=== PATIENT | male | born 1975 | race Caucasian/White ===

== ENCOUNTER 2020-03-01 19:12 | Emergency (ER) | payer MEDICAID, SELFPAY ==
[2020-03-01 19:25] VITALS: BP 132/84; PULSE 108; RESP 18; TEMP 36.9; O2SAT 97
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
== END 2020-03-01 19:43 | disposition short-term general hospital (02) ==
PROVIDERS: Emergency Provider Nurse Practitioner Family
DX: J44.1 Chronic obstructive pulmonary disease with (acute) exacerbation (principal); M54.5 Low back pain; W10.9XXA Fall (on) (from) unspecified stairs and steps, initial encounter
CPT/HCPCS: 99203; G0463

== ENCOUNTER 2020-03-01 20:06 | Emergency (ER) | payer MEDICAID, SELFPAY ==
--- NOTE | ~2020-03-01 | XR_ITS ---
EXAMINATION: XR lumbar spine 2-3V DATE: 03/01/2020 20:56 INDICATION: Medial low back pain radiating down the right leg post fall 2 days prior. TECHNIQUE: Anteroposterior and lateral views of the lumbar spine, and cone-down lateral view of the l umbosacral junction were obtained. COMPARISON: None. FINDINGS: L4 and L5 laminectomies. L4-S1 posterior spinal fusion with bilateral vertical thania and pedicle screw fixation. No lucency surrounding the screws to suggest loosening. Alignment is normal. Vertebral body heights are normal. Mild to moderate disc height loss at L4-L5 and L5-S1. Visualized portions of the sacrum and bilateral sacral iliac joints are unremarkable. Lung bases are clear. IMPRESSION: 1. Mild to moderate lower lumbar spondylosis with L4 and L5 laminectomies and L4-S1 instrumented post erior spinal fusion. No evident acute osseous abnormality. Reviewed, dictated and finalized at location A. IMPRESSION: 1. Mild to moderate lower lumbar spondylosis with L4 and L5 laminectomies and L 4-S1 instrumented posterior spinal fusion. No evident acute osseous abnormality .
[2020-03-01 20:11] VITALS: BP 125/70; PULSE 108; RESP 19; TEMP 36.9; O2SAT 98
--- NOTE | 2020-03-01 20:34 | ED.BACK ---
HPI - Back Pain/Injury General Chief Complaint: Back Pain/Injury Stated Complaint: back pain Time Seen by Provider: 03/01/20 20:26 Source: patient Mode of arrival: ambulatory Limitations: no limitations History of Present Illness HPI Narrative: Patient is a 44-year-old male who presents with low back pain with history of thoracolumbar fusion patient was carrying a dresser when he fell injuring the low back 2 days ago noting aching pain since. Patient with history of chronic low back pain was on [place] but now is out of his medication. Patient on arrival to emergency department notes only low back pain denies other injuries or complaints presents with normal gait no distress Related Data Home Medications Medication Instructions Recorded Confirmed ProAir HFA 03/01/20 Spiriva with HandiHaler 03/01/20 Allergies Allergy/AdvReac Type Severity Reaction Status Date / Time ketorolac [From Toradol] Allergy Hives Verified 03/01/20 20:22 naproxen Allergy Hives Verified 03/01/20 20:22 Penicillins Allergy Hives Verified 03/01/20 20:22 tramadol Allergy Hives Verified 03/01/20 20:22 Review of Systems Review of Systems: All systems reviewed & are unremarkable except as noted in HPI and below PMFSH Surgical History Surgical History (Updated 03/01/20 @ 20:39 by Scott Beasley PA-C) History of orthopedic surgery Social History Social History (Updated 03/01/20 @ 20:39 by Scott Beasley PA-C) Smoking status: Current every day smoker Gender identity (if verbalized by the patient): Male Exam Narrative: Exam Narrative: GENERAL: Well-appearing, well-nourished, and in no acute distress. HEAD: Normocephalic, atraumatic. EYES: PERRLA and EOMI. ENT: Nares clear, no rhinorrhea or epistaxis. Mucous membranes moist. CHEST: Clear to auscultation. No respiratory distress. No wheezes rales or rhonchi HEART: Regular rate and rhythm. No murmur heard. EXTREMITIES: Normal range of motion. No edema. Midline thoracolumbar tenderness no deformities noted SKIN: Warm, dry, no rash. NEURO: No focal deficits. Alert and oriented x3. Normal speech and gait. Cranial nerves II through XII grossly intact PSYCH: Normal mood and affect. Course Course Emergency Course: Patient in the room in no distress aware of case findings treatment plan diagnosis felt appropriate for discharge home Vital Signs Vital signs: Vital Signs Temperature 98.4 F 03/01/20 20:11 Pulse Rate 108 H 03/01/20 20:11 Respiratory Rate 19 03/01/20 20:11 Blood Pressure 125/70 03/01/20 20:11 Pulse Oximetry 98 03/01/20 20:11 Temperature 98.4 F 03/01/20 20:11 Pulse Rate 108 H 03/01/20 20:11 Respiratory Rate 19 03/01/20 20:11 Blood Pressure 125/70 03/01/20 20:11 Pulse Oximetry 98 03/01/20 20:11 MDM - Back Pain/Injury MDM Narrative Medical decision making narrative: Patients pain is positional in nature and localized to back without signs of cord compression or cauda equina based on neurological exam, skeletal exam and history. No fever or other significant factors to suggest osteomyelitis or spinal epidural abscess. No symptoms or signs to suggest pain is referred from abdominal or / cardiopulmonary sources. No pulsatile masses noted on exam. Patient ambulates with steady gait and is stable for outpatient management given case findings. Discharge Plan Discharge Clinical Impression: Strain of lumbar region Patient Disposition: Home, Self-Care Condition: Stable Instructions: Antibiotic Form, Acute Low Back Pain (ED) Additional Instructions: Medications as needed and prescribed. Limit lifting and bending. You may apply heat or cold to the area as needed. Follow up with your doctor for further care in the next 7 days. Contact your doctor or return to the emergency department if you develop problems with bladder or bowel function, weakness or loss of feeling in one or both of your legs, or any other serious co
[2020-03-01] MEDS: HYDROcodone/acetaminophen (*CRX) 5-325 MG TABLET 1 TAB PO (21:01)
[2020-03-01 21:20] VITALS: PULSE 80; RESP 18; TEMP 36.7; O2SAT 99
== END 2020-03-01 21:21 | disposition home or self-care (01) ==
PROVIDERS: Emergency Provider Emergency Medicine
DX: S39.012A Strain of muscle, fascia and tendon of lower back, initial encounter (principal); Z98.1 Arthrodesis status; F17.200 Nicotine dependence, unspecified, uncomplicated; G89.29 Other chronic pain; M54.5 Low back pain; W10.9XXA Fall (on) (from) unspecified stairs and steps, initial encounter
CPT/HCPCS: 72100; 99283; A9270

== ENCOUNTER 2020-04-17 09:28 | Emergency (ER) | payer MEDICAID, SELFPAY ==
[2020-04-17 09:36] VITALS: BP 130/76; PULSE 112; RESP 16; TEMP 36.7; O2SAT 98
--- NOTE | 2020-04-17 09:50 | ED.DENTAL ---
HPI - Dental/Oral General Chief complaint: Dental/Oral Stated complaint: Tooth Pain Time Seen by Provider: 04/17/20 09:39 Source: patient and RN notes reviewed Mode of arrival: ambulatory Limitations: no limitations History of Present Illness HPI Narrative: Patient presents today with a 4 to 5-day history of right upper dental pain and swelling. States he has a dentist appointment set up in 1 week. States he has 2 or 3 teeth in this area that are painful and needs to get this whole area pulled. He has had the left upper arch all extracted in the past. Denies fever, shortness of breath, difficulty swallowing. He has been taking Tylenol without relief. Currently rates pain 03/12. No recent antibiotic use. History of COPD. MD Complaint: tooth pain Related Data Home Medications Medication Instructions Recorded Confirmed ProAir HFA 03/01/20 Spiriva with HandiHaler 03/01/20 Allergies Allergy/AdvReac Type Severity Reaction Status Date / Time ketorolac [From Toradol] Allergy Hives Verified 04/17/20 09:40 naproxen Allergy Hives Verified 04/17/20 09:40 Penicillins Allergy Hives Verified 04/17/20 09:40 tramadol Allergy Hives Verified 04/17/20 09:40 Review of Systems Review of Systems: Narrative: CONSTITUTIONAL: Denies body aches, fever, chills, or sweats. EYES: Denies visual changes, redness, or discharge. ENT: Denies rhinorrhea, congestion, sore throat, or otalgia.+ Dental pain and right upper facial swelling CARDIOVASCULAR: Denies chest pain, palpitations, or edema. RESPIRATORY: Denies cough or dyspnea. GASTROINTESTINAL: Denies abdominal pain, nausea, vomiting, or diarrhea. GENITOURINARY: Denies dysuria or hematuria. SKIN: Denies rash, itching, or wounds. MUSCULOSKELETAL: Denies back pain, joint pain, or myalgia. NEUROLOGIC: Denies headache, numbness, tingling, or weakness. PSYCH: Denies depression or anxiety. [facility] Past Medical History Medical History (Updated 04/17/20 @ 09:55 by Eleni Moreland, AIX SYSTEM ADMINISTRATOR, BC) COPD (chronic obstructive pulmonary disease) Surgical History Surgical History (Updated 03/01/20 @ 20:39 by Scott Beasley PA-C) History of orthopedic surgery Social History Social History (Updated 03/01/20 @ 20:39 by Scott Beasley PA-C) Smoking status: Current every day smoker Gender identity (if verbalized by the patient): Male Comments At time of signature, I have reviewed and agree with nursing past medical, surgical, social and family history unless otherwise noted. Please see nursing chart for further information. There is no relevant family history pertinent to the presenting complaint Exam Narrative: Exam Narrative: GENERAL: Well-appearing, well-nourished, and in no acute distress. HEAD: Normocephalic, atraumatic. EYES: EOMI. No redness or drainage. Conjunctivae normal. ENT: Mucous membranes pink and moist. Throat normal. Uvula midline. Moderate amount of right upper jaw swelling. Swelling of the right upper gingiva with erythema. No obvious periapical abscess. Teeth in this portion of the arch are black in color with large caries. Few are broken off at the gumline. NECK: Normal AROM. Supple. No lymphadenopathy. CHEST: No respiratory distress. EXTREMITIES: Normal range of motion. No edema. SKIN: Warm, dry, no rash. Capillary refill normal. Normal skin turgor. NEURO: No focal deficits. Alert and oriented x3. Gait steady. PSYCH: Normal affect. No signs of depression or anxiety. Course Vital Signs Vital signs: Vital Signs Temperature 98.0 F 04/17/20 09:36 Pulse Rate 112 H 04/17/20 09:36 Respiratory Rate 16 04/17/20 09:36 Blood Pressure 130/76 04/17/20 09:36 Pulse Oximetry 98 04/17/20 09:36 Temperature 98.0 F 04/17/20 09:36 Pulse Rate 112 H 04/17/20 09:36 Respiratory Rate 16 04/17/20 09:36 Blood Pressure 130/76 04/17/20 09:36 Pulse Oximetry 98 04/17/20 09:36 Reviewed. Pt has been instructed to follow up with his PCP
== END 2020-04-17 09:54 | disposition home or self-care (01) ==
PROVIDERS: Emergency Provider Nurse Practitioner
DX: K04.7 Periapical abscess without sinus (principal); J44.9 Chronic obstructive pulmonary disease, unspecified; F17.200 Nicotine dependence, unspecified, uncomplicated
CPT/HCPCS: 99213; G0463

== ENCOUNTER 2020-04-17 10:13 | Emergency (ER) | payer MEDICAID, SELFPAY ==
[2020-04-17 10:19] VITALS: BP 116/76; PULSE 81; RESP 16; TEMP 36.1; O2SAT 97
--- NOTE | 2020-04-17 11:05 | ED.DENTAL ---
HPI - Dental/Oral General Chief complaint: Dental/Oral Stated complaint: tooth pain/facial swelling Time Seen by Provider: 04/17/20 10:15 Source: patient Mode of arrival: ambulatory Limitations: no limitations History of Present Illness HPI Narrative: Patient is a 44-year-old male who presents with right upper dental abscess for the last several days increasing redness and swelling and tenderness denies fever chills nausea vomiting URI symptoms has not taken anything for his symptoms presents uncomfortable but in no distress does not have a dentist history of gross dental decay Related Data Home Medications Medication Instructions Recorded Confirmed ProAir HFA 03/01/20 Spiriva with HandiHaler 03/01/20 Allergies Allergy/AdvReac Type Severity Reaction Status Date / Time Penicillins Allergy Hives Verified 04/17/20 10:21 Review of Systems Review of Systems: All systems reviewed & are unremarkable except as noted in HPI and below PMFSH Past Medical History Medical History COPD (chronic obstructive pulmonary disease) Surgical History Surgical History History of orthopedic surgery Social History Social History Smoking status: Current every day smoker Gender identity (if verbalized by the patient): Male Exam Narrative: Exam Narrative: GENERAL: Well-appearing, well-nourished, and in no acute distress. HEAD: Normocephalic, atraumatic. Slight swelling of the right upper cheek no erythema EYES: PERRLA and EOMI. ENT: Nares clear, no rhinorrhea or epistaxis. Mucous membranes moist. Oropharynx without tonsillar hypertrophy exudate or other lesions. Right upper dental abscess with swelling along the gumline floor the mouth is soft uvula is midline no trismus or drooling or other abnormalities NECK: Supple. No adenopathy or masses. SKIN: Warm, dry, no rash. NEURO: No focal deficits. Alert and oriented x3. PSYCH: Normal mood and affect. Course Course Emergency Course: Patient in the room in no distress aware of case findings treatment plan diagnosis had I&D of his abscess will be discharged with medications and dental referral and reasons to return Vital Signs Vital signs: Vital Signs Temperature 97 F L 04/17/20 10:19 Pulse Rate 81 04/17/20 10:19 Respiratory Rate 16 04/17/20 10:19 Blood Pressure 116/76 04/17/20 10:19 Pulse Oximetry 97 04/17/20 10:19 Temperature 97 F L 04/17/20 10:19 Pulse Rate 81 04/17/20 10:19 Respiratory Rate 16 04/17/20 10:19 Blood Pressure 116/76 04/17/20 10:19 Pulse Oximetry 97 04/17/20 10:19 Procedures Abscess I/D Oral: Date of Incision: 04/17/20 Time of Incision: 11:07 Side (if applicable): right Sedation/analgesia: none Technique: other (18-gauge needle used to make single straight incision) Irrigation: No I&D Results: Pus and Blood Complications: pain MDM - Dental/Oral MDM Narrative Medical decision making narrative: Paitents pain and complaint coupled with physical findings are consistant with dentalgia. There are no focal signs of space occupying lesions that are compromising to the ariway. The floor of the mouth is soft with no signs of Ludwigs Angina. Patient is without trismus or drooling and able to swallow secreations. Patient is felt appropriate for discharge home with dental follow up. Discharge Plan Discharge Clinical Impression: Dental abscess Patient Disposition: Home, Self-Care Condition: Stable Instructions: Antibiotic Form, Dental Abscess (ED) Additional Instructions: Follow-up with dentistry in the next 7 days. Go to ER for shortness of breath, difficulty breathing, chest pain, fever/chills, weakness, nauseau/vomitting, unable to swallow or open the mouth etc. or any other concerns. Stay we
[2020-04-17] MEDS: ACETAMINOPHEN 500 MG TABLET 1000 MG PO (11:29)
[2020-04-17] MEDS: IBUPROFEN 600 MG TABLET PO (11:29)
--- NOTE | 2020-04-17 11:29 | PC.NURSE ---
patient medicated prior to discharge. 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 alert and oriented.
[2020-04-17 11:30] VITALS: BP 162/82; PULSE 78; TEMP 36.6
== END 2020-04-17 11:32 | disposition home or self-care (01) ==
PROVIDERS: Emergency Provider Emergency Medicine
DX: K04.7 Periapical abscess without sinus (principal); J44.9 Chronic obstructive pulmonary disease, unspecified; F17.200 Nicotine dependence, unspecified, uncomplicated
CPT/HCPCS: 41800; 99283; A9270

== ENCOUNTER 2020-05-28 12:08 | Emergency (ER) | payer OTHER, SELFPAY ==
--- NOTE | ~2020-05-28 | XR_ITS ---
EXAMINATION: XR abdomen/kub 1V EXAM DATE: 05/28/2020 12:47 INDICATION: Groin pain, hematuria. TECHNIQUE: Frontal upright projection of the upper abdomen, frontal projection of the lower abdomen f or interpretation. There is no prior study for comparison. FINDINGS: There are several loops of moderately distended air-filled mid small bowel, could be ileus or less likely obstruction. Moderate amount of colonic stool. L4-S1 posterior fusion and laminectomi es. The spinal cord signal intensity and intrinsic morphology is normal. IMPRESSION: Several moderately distended small bowel loops, probably ileus given no GI symptoms repor teresa in the moderate amount of colonic stool. Clinical correlation. Reviewed, dictated and finalized at location A. [facility] IMPRESSION: Several moderately distended small bowel loops, probably ileus give n no GI symptoms reported in the moderate amount of colonic stool. Clinical cor relation.
[2020-05-28 12:17] VITALS: BP 140/87; PULSE 109; RESP 16; TEMP 36.7; O2SAT 99
[2020-05-28 12:22] VITALS: BP 140/87; PULSE 109; RESP 16; TEMP 36.7; O2SAT 99
--- NOTE | 2020-05-28 12:39 | ED.MALEGU ---
HPI - Male Genitourinary General Chief complaint: Urogenital-Male Stated complaint: groin pain Time Seen by Provider: 05/28/20 12:21 Source: patient and RN notes reviewed Mode of arrival: ambulatory Limitations: no limitations History of Present Illness HPI Narrative: Patient presents today complaint of a 2-day history of left flank pain that now radiates to the left groin, hematuria, dysuria. Currently rates his pain 10/10 and has been taking Tylenol and ibuprofen with little relief. He does have history of kidney stones that he has been able to pass on his own. Denies any current fever, nausea, or vomiting. Last bowel movement was today and was normal. Denies abdominal pain, scrotal pain, testicular pain. Patient is also requesting a refill of his albuterol inhaler. Patient takes [place] 5/325 TID for his chronic low back pain. He has had several back surgeries in the past with hardware placed. MD Complaint: dysuria and other (Flank pain, hematuria) Related Data Home Medications Medication Instructions Recorded Confirmed budesonide-formoterol [Symbicort] 1 inh INHALATION DIRECTED 05/28/20 05/28/20 hydrocodone-acetaminophen 1 tablet PO DIRECTED 05/28/20 05/28/20 tiotropium bromide [Spiriva with 1 cap INHALATION DAILY 05/28/20 05/28/20 HandiHaler] Allergies Allergy/AdvReac Type Severity Reaction Status Date / Time Penicillins Allergy Hives Verified 05/28/20 12:18 Review of Systems Review of Systems: Narrative: CONSTITUTIONAL: Denies body aches, fever, chills, or sweats. EYES: Denies visual changes, redness, or discharge. ENT: Denies rhinorrhea, congestion, sore throat, or otalgia. CARDIOVASCULAR: Denies chest pain, palpitations, or edema. RESPIRATORY: Denies cough or dyspnea. GASTROINTESTINAL: Denies nausea, vomiting, or diarrhea. GENITOURINARY:+ Dysuria, hematuria, left groin pain, left flank pain SKIN: Denies rash, itching, or wounds. MUSCULOSKELETAL: Denies back pain, joint pain, or myalgia. NEUROLOGIC: Denies headache, numbness, tingling, or weakness. PSYCH: Denies depression or anxiety. [facility] Past Medical History Medical History COPD (chronic obstructive pulmonary disease) Surgical History Surgical History History of orthopedic surgery Social History Social History Smoking status: Current every day smoker Gender identity (if verbalized by the patient): Male Comments At time of signature, I have reviewed and agree with nursing past medical, surgical, social and family history unless otherwise noted. Please see nursing chart for further information. There is no relevant family history pertinent to the presenting complaint Exam Narrative: Exam Narrative: GENERAL: Well-appearing, well-nourished, and in moderate pain distress. HEAD: Normocephalic, atraumatic. EYES: EOMI. No redness or drainage. Conjunctivae normal. ENT: Mucous membranes pink and moist. NECK: Normal AROM. Supple. No lymphadenopathy. CHEST: No respiratory distress. Clear to auscultation. HEART: Regular rate and rhythm. No murmur appreciated. Normal peripheral pulses. ABDOMEN: Soft, nondistended, normal active bowel sounds. MUSCULOSKELETAL: No bony tenderness. EXTREMITIES: Normal range of motion. No edema. SKIN: Warm, dry, no rash. Capillary refill normal. Normal skin turgor. NEURO: No focal deficits. Alert and oriented x3. Gait steady. PSYCH: Normal affect. No signs of depression or anxiety. Course Course Emergency Course: Discussed x-ray results with patient. Instructed him to drink plenty of water and take a laxative. Discussed with him that he should only take the amount of pain medication that has been prescribed to him and no more. At this time, I do not feel it indicated to send him to the ER for evaluation. Anticipatory guidance given. A
[2020-05-28] MEDS: KETOROLAC (*BKC) 60 MG/2 ML VIAL IM (12:49)
== END 2020-05-28 13:48 | disposition home or self-care (01) ==
PROVIDERS: Emergency Provider Nurse Practitioner; PCP Family Medicine
DX: N20.0 Calculus of kidney (principal); F17.200 Nicotine dependence, unspecified, uncomplicated; J44.9 Chronic obstructive pulmonary disease, unspecified
CPT/HCPCS: 74018; 81003; 96372; 99213; G0463; J1885

== ENCOUNTER 2020-07-22 13:39 | Emergency (ER) | payer OTHER, SELFPAY ==
--- NOTE | ~2020-07-22 | XR_ITS ---
EXAMINATION: XR chest 2V DATE: 07/22/2020 14:33 INDICATION: Shortness of breath TECHNIQUE: AP and lateral views of the chest are obtained. COMPARISON: None available FINDINGS: Lucencies in the upper lung zones are consistent with emphysema. The lungs are free of acut e opacities. Calcified pulmonary nodules are consistent with old granulomatous disease. There is no p leural effusion or pneumothorax. The cardiomediastinal silhouette is normal. There is moderate thorac ic spondylosis. IMPRESSION: 1. Emphysema without acute cardiopulmonary abnormality. Reviewed, dictated and finalized at location A. [facility] CUTTER
[2020-07-22 13:41] VITALS: BP 121/92; PULSE 101; RESP 18; TEMP 36.8; O2SAT 96
--- NOTE | 2020-07-22 13:45 | ECG_ITS ---
Measurements Intervals [place] Rate: 84 P: 86 KS: 127 QRS: 72 QRSD: 107 T: 79 QT: 339 QTc: 402 Interpretive Statements SINUS RHYTHM WITH MARKED SINUS ARRHYTHMIA INCOMPLETE RIGHT BUNDLE BRANCH BLOCK BASELINE ARTIFACT- V1, V4-V5 BORDERLINE ECG Electronically Signed On 07-22-2020 14:40:34 SR. PAYROLL MANAGER by Tao Diaz D.O.
--- NOTE | 2020-07-22 13:50 | PC.NURSE ---
patient brought back to ED room 14 with c/o increased dyspnea. hx of COPD. wears O2 at home but not helping today. took last nebulizer treatment 1 hour ago without relief. continues to smoke 2PPD per patient and . assessments documented. SL inserted. EKG done. patient on hall monitor. patient and updated with current treatment plan. call light in reach.
--- NOTE | 2020-07-22 14:20 | ED.SOB ---
HPI - SOB/Dyspnea General Chief Complaint: Shortness of Breath/Dyspnea Stated Complaint: hx copd, diff breathing Time Seen by Provider: 07/22/20 14:20 Source: patient and family Mode of arrival: ambulatory Limitations: no limitations History of Present Illness HPI Narrative: Patient is 45 years old white male presents with increase of productive cough of colored sputum and shortness of breath on exertion for the last 2 to 3 weeks. Patient is actively smoker, on 3 L oxygen by nasal cannula at home, came without oxygen. Patient denies any fever, chills, nausea, vomiting, history of COVID-19 infection or exposure to anybody with COVID-19. MD elicited complaint: shortness of breath and cough Related Data Home Medications Medication Instructions Recorded Confirmed budesonide-formoterol [Symbicort] 1 inh INHALATION DIRECTED 05/28/20 05/28/20 hydrocodone-acetaminophen 1 tablet PO DIRECTED 05/28/20 05/28/20 tiotropium bromide [Spiriva with 1 cap INHALATION DAILY 05/28/20 05/28/20 HandiHaler] Allergies Allergy/AdvReac Type Severity Reaction Status Date / Time ketorolac [From Toradol] Allergy Hives Verified 07/22/20 13:45 naproxen Allergy Hives Verified 07/22/20 13:45 Penicillins Allergy Hives Verified 07/22/20 13:44 tramadol Allergy Hives Verified 07/22/20 13:44 Review of Systems Review of Systems: Narrative: CONSTITUTIONAL: Denies fever, chills, or sweats. EYES: Denies visual changes, redness, or discharge. ENT: Denies rhinorrhea, congestion, sore throat, or otalgia. CARDIOVASCULAR: Denies chest pain, palpitations, or edema. RESPIRATORY: Denies cough or dyspnea. GASTROINTESTINAL: Denies abdominal pain, nausea, vomiting, or diarrhea. GENITOURINARY: Denies dysuria or hematuria. SKIN: Denies rash or itching. MUSCULOSKELETAL: Denies back pain, joint pain, or myalgia. NEUROLOGIC: Denies headache, numbness, or weakness. PSYCHIATRIC: Denies anxiety or depression. [facility] Past Medical History Medical History COPD (chronic obstructive pulmonary disease) Surgical History Surgical History History of orthopedic surgery Social History Social History Smoking status: Current every day smoker Gender identity (if verbalized by the patient): Male Exam Narrative: Exam Narrative: General appearance: Well-developed, well-nourished Skin: Normal color Head: Normocephalic, nontraumatic Eyes: Clear conjunctiva ENT: Oropharynx normal, ears normal, nose normal Neck: Supple, nontender Chest and respiratory: Airway patent, no respiratory distress, no accessory muscle use,, diminution of air entry bilaterally Heart: Regular rate/rhythm Abdomen: Soft, nontender, no organomegaly, quiet bowel sounds Vascular: Normal peripheral pulses, normal capillary refill. Musculoskeletal: Normal range of motion, nontender back Neurologic: Alert and oriented ?3, [employer] is normal as tested, no gross motor deficit Course Course Emergency Course: Improving Vital Signs Vital signs: Vital Signs Temperature 36.8 C 07/22/20 13:41 Pulse Rate 101 H 07/22/20 13:41 Respiratory Rate 18 07/22/20 13:41 Blood Pressure 121/92 H 07/22/20 13:41 Pulse Oximetry 96 07/22/20 13:41 Temperature 36.8 C 07/22/20 13:41 Pulse Rate 101 H 07/22/20 13:41 Respiratory Rate 18 07/22/20 13:41 Blood Pressure 121/92 H 07/22/20 13:41 Pulse Oximetry 96 07/22/20 13:41 MDM - SOB/Dyspnea MDM Narrative Medical decision making narrative: COPD exacerbation is my concern. Labs, ABG on room air, chest x-ray, D-dimer o
[2020-07-22 14:29] LABS: Basophils Absolute Auto 0.1 K/mm3 (0.0-0.1); Basophils Percent Auto 0.9 % (0.2-1.2); Eosinophils Absolute Auto 0.2 K/mm3 (0-0.3); Hematocrit 42.7 % (42.0-52.0); Hemoglobin 14.2 g/dL (14.0-18.0); Immature Granulocyte Absolute 0.03 K/mm3 (0.00-0.031); Immature Granulocyte Percent A 0.3 % (0-0.5); Lymphocytes Absolute Auto 2.94 K/mm3 (0.9-3.2); Lymphocytes Percent Auto 25.1 % (18.3-44.2); Mean Corpuscular HGB Conc 33.3 g/dl (32-36); Mean Corpuscular Hemoglobin 31.4 pg (26-34); Mean Corpuscular Volume 94.5 fl (80-100); Mean Platelet Volume 9.7 fl (7.4-10.4); Monocytes Absolute Auto 0.7 K/mm3 (0.1-0.6); Monocytes Percent Auto 6.2 % (2.6-8.5); Neutrophils Absolute Auto 7.7 K/mm3 (1.3-6.7); Neutrophils Percent Auto 65.5 % (45.5-73.1); Platelet Count Result 459 k/mm3 (150-375); Red Blood Count 4.52 M/mm3 (4.6-6.20); White Blood Count 11.7 K/mm3 (4.5-10.0)
--- NOTE | 2020-07-22 14:30 | PC.NURSE ---
respiratory at bedside for neb treatment.
[2020-07-22 14:35] LABS: Anion Gap 8 mmol/L (8-16); Blood Urea Nitrogen 11 mg/dL (9-20); Calcium 9.1 mg/dL (8.4-10.2); Carbon Dioxide 31 mmol/L (22-30); Chloride 102 mmol/L (98-107); Estimated CRCL calculation 96 ml/min; Estimated Glomerular Filt Rate > 60; Glucose 87 mg/dL (75-110); Potassium 4.5 mmol/L (3.4-5.0); Sodium 141 mmol/L (137-145)
[2020-07-22 14:46] LABS: Alveolar/Arterial O2 Gradient 19.4 mmHg; Base Excess ABG -0.8 mEq/l (+/-2.0); Fractional Inspired Oxygen 21 %; Oxygen Content ABG 19.3 %vol (16.0-22.0); Oxyhemoglobin 92.8 % THb (90.0-100.0); PCO2 ABG 40.4 mmHg (35.0-45.0); Total Hemoglobin 14.8 g/dL (12.0-18.0); pH ABG 7.392 (7.350-7.450)
[2020-07-22 14:47] LABS: Device ROOM AIR; Modified Allen's Test Pass; Site Drawn LEFT RADIAL
[2020-07-22 14:53] LABS: D Dimer < 0.22 ug/mL (<0.48)
[2020-07-22 16:37] LABS: Alanine Aminotransferase 21 U/L (4-50); Albumin Level 4.3 g/dL (3.5-5.1); Alkaline Phosphatase 102 U/L (38-126); Aspartate Amino Transferase 30 U/L (17-59); Bilirubin,Total 0.3 mg/dL (0.2-1.3)
--- NOTE | 2020-07-22 16:45 | PC.NURSE ---
provider in room. order for meds now. patient aware. medicated as ordered.
[2020-07-22] MEDS: ONDANSETRON INJ 4 MG/2 ML VIAL IV PUSH (16:50)
[2020-07-22] MEDS: MORPHINE SULFATE (*CRX) 4 MG/ML INJ IV PUSH (16:50)
[2020-07-22 17:04] VITALS: PULSE 95; RESP 20
[2020-07-22] MEDS: IPRATROPIUM BR 0.02% INH SOLN 0.5 MG/2.5 ML VIAL INHALATION (17:04)
[2020-07-22] MEDS: ALBUTEROL SULFATE NEB 2.5 MG/0.5 ML INH 5 MG INHALATION (17:04)
[2020-07-22] MEDS: methylPREDNISolone SOD SUCC 125 MG VIAL IV PUSH (17:15)
--- NOTE | 2020-07-22 17:15 | PC.NURSE ---
feels better after all meds. treatment done. waiting for further orders from provider vs disposition. on engine monitor. denies needs.
[2020-07-22 17:25] VITALS: BP 127/88; PULSE 103; RESP 16; O2SAT 94
== END 2020-07-22 17:25 | disposition home or self-care (01) ==
PROVIDERS: Emergency Provider Emergency Medicine; PCP Family Medicine
DX: J44.1 Chronic obstructive pulmonary disease with (acute) exacerbation (principal); F17.200 Nicotine dependence, unspecified, uncomplicated; Z99.81 Dependence on supplemental oxygen; I45.10 Unspecified right bundle-branch block
CPT/HCPCS: 36415; 36600; 71046; 80048; 80076; 82805; 85025; 85380; 93005; 94640; 96374; 96375; 99284; J2270; J2405; J2930

== ENCOUNTER 2020-10-11 17:07 | Emergency (ER) | payer OTHER, SELFPAY ==
--- NOTE | ~2020-10-11 | CT_ITS ---
EXAMINATION: CT abdomen pelvis wo con EXAM DATE: 10/11/2020 18:07 INDICATION: Right flank pain. TECHNIQUE: Spiral CT of the abdomen and pelvis was performed without contrast. Axial, coronal and sag ittal images were reviewed. The dose-length product (DLP) for this examination was 127.99 mGy-cm. T he exposure was tailored according to patient size (auto mA exposure control), and iterative reconstr uction (ASIR) was used as additional dose reduction technique. There is no prior study for compariso n. FINDINGS: There is no nephrolithiasis or hydronephrosis. The prostate is unremarkable. There is mi ld diffuse bladder wall thickening, could indicate chronic cystitis. Acute cystitis not excludable. The liver, spleen, adrenal glands and pancreas are unremarkable. Gallbladder is unremarkable. No bi liary obstruction. There is no retroperitoneal or pelvic lymphadenopathy. Possible appendectomy. There is mild sigmoid colonic diverticulosis. There is no adjacent inflammato ry change to suggest diverticulitis. The stomach and small bowel are unremarkable. There is expected amount of colonic stool. No free intraperitoneal gas. The heart is normal in size. There are no pericardial or pleural effusions. There is moderate emphysema and hyperinflation. L4 and L5 aguila ctomies, and posterior fusion L4-S1. There are no osteoblastic or osteolytic lesions identified. IMPRESSION: 1. Mild diffuse bladder wall thickening, could indicate acute or chronic cystitis. 2. No nephrolithiasis or hydronephrosis. 3. Mild sigmoid diverticulosis. 4. Emphysema and hyperinflation. Reviewed, dictated and finalized at location A. IMPRESSION: 1. Mild diffuse bladder wall thickening, could indicate acute or chronic cysti tis. 2. No nephrolithiasis or hydronephrosis. 3. Mild sigmoid diverticulosis. 4. Emphysema and hyperinflation.
[2020-10-11 17:08] VITALS: BP 135/90; PULSE 92; RESP 16; TEMP 37; O2SAT 100
[2020-10-11 17:50] LABS: Add Urine Microscopic? YES; Appearance Urine Clear (Clear); Bacteria Urine Trace /hpf; Bilirubin Urine Negative (Negative); Blood Urine 3+ (Negative); Color Urine Yellow (Yellow); Glucose Urine UA Negative (Negative); Ketones Urine Negative (Negative); Leukocyte Esterase Ur Negative LEU/UL (Negative); Nitrate Urine Negative (Negative); Protein Urine Negative (Negative); RBC Urine >75 /hpf (0-2); Specific Grav Ur 1.005 (1.001-1.035); Urobilinogen Urine Negative mg/dL (<2.0)
[2020-10-11] MEDS: SODIUM CHLORIDE 0.9% IV 1,000 ML 999 ML IV CONT (17:50)
[2020-10-11] MEDS: ONDANSETRON INJ 4 MG/2 ML VIAL IV PUSH (17:51)
[2020-10-11 17:52] LABS: Basophils Absolute Auto 0.1 K/mm3 (0.0-0.1); Basophils Percent Auto 0.7 % (0.2-1.2); Eosinophils Absolute Auto 0.4 K/mm3 (0-0.3); Eosinophils Percent Auto 3.7 % (0-4.4); Hematocrit 42.6 % (42.0-52.0); Immature Granulocyte Absolute 0.04 K/mm3 (0.00-0.031); Immature Granulocyte Percent A 0.4 % (0-0.5); Lymphocytes Absolute Auto 4.43 K/mm3 (0.9-3.2); Lymphocytes Percent Auto 45.2 % (18.3-44.2); Mean Corpuscular HGB Conc 32.9 g/dl (32-36); Mean Corpuscular Hemoglobin 31.2 pg (26-34); Mean Corpuscular Volume 94.9 fl (80-100); Mean Platelet Volume 9.1 fl (7.4-10.4); Monocytes Absolute Auto 0.7 K/mm3 (0.1-0.6); Monocytes Percent Auto 6.9 % (2.6-8.5); Neutrophils Absolute Auto 4.2 K/mm3 (1.3-6.7); Neutrophils Percent Auto 43.1 % (45.5-73.1); Platelet Count Result 393 k/mm3 (150-375); Red Blood Count 4.49 M/mm3 (4.6-6.20); Red Cell Distribution Width 12.7 % (11.5-14.5); White Blood Count 9.8 K/mm3 (4.5-10.0)
[2020-10-11] MEDS: MORPHINE SULFATE (*CRX) 4 MG/ML INJ IV PUSH (17:52)
[2020-10-11 18:01] LABS: Anion Gap 1 mmol/L (8-16); Blood Urea Nitrogen 4 mg/dL (9-20); Calcium 8.9 mg/dL (8.4-10.2); Carbon Dioxide 36 mmol/L (22-30); Chloride 105 mmol/L (98-107); Estimated CRCL calculation 100 ml/min; Estimated Glomerular Filt Rate > 60; Glucose 96 mg/dL (75-110); Potassium 3.9 mmol/L (3.4-5.0); Sodium 142 mmol/L (137-145)
--- NOTE | 2020-10-11 18:28 | ED.BACK ---
HPI - Back Pain/Injury General Chief Complaint: Back Pain/Injury Stated Complaint: flank pain, vomiting Time Seen by Provider: 10/11/20 17:17 History of Present Illness HPI Narrative: Patient is a 45-year-old male who presents ER with right flank pain. Ongoing over the last week but increasing steadily. He had outpatient urinalysis that showed hematuria through his PCP. Reports he is having urinary urgency but has not been able to pee today. Mild nausea no vomiting. No history of kidney stones. No history of kidney stones. No radiation into his groin. Related Data Home Medications Medication Instructions Recorded Confirmed budesonide-formoterol [Symbicort] 1 inh INHALATION DIRECTED 05/28/20 05/28/20 hydrocodone-acetaminophen 1 tablet PO DIRECTED 05/28/20 05/28/20 tiotropium bromide [Spiriva with 1 cap INHALATION DAILY 05/28/20 05/28/20 HandiHaler] Allergies Allergy/AdvReac Type Severity Reaction Status Date / Time ketorolac [From Toradol] Allergy Hives Verified 10/11/20 17:12 naproxen Allergy Hives Verified 10/11/20 17:12 Penicillins Allergy Hives Verified 10/11/20 17:12 tramadol Allergy Hives Verified 10/11/20 17:12 Review of Systems Review of Systems: All systems reviewed & are unremarkable except as noted in HPI and below Constitutional: Constitutional: Denies chills, Denies fever(s) and Denies weakness ENT: Denies nasal congestion and Denies sore throat Cardiovascular: Cardiovascular: Denies chest pain and Denies radiating jaw, neck or arm pain Gastrointestinal: Gastrointestinal: Denies abdominal pain, Reports nausea and Denies vomiting Genitourinary: Genitourinary: Reports hematuria and Denies dysuria Musculoskeletal: Musculoskeletal: Reports back pain and Denies muscle cramps Neurologic: Denies focal weakness and Denies numbness PMF Past Medical History Medical History COPD (chronic obstructive pulmonary disease) Surgical History Surgical History History of orthopedic surgery Social History Social History Smoking status: Current every day smoker Gender identity (if verbalized by the patient): Male Exam Narrative: Exam Narrative: GENERAL: Uncomfortable-appearing, well-nourished, and in no acute distress. HEAD: Normocephalic, atraumatic. ENT: Mucous membranes moist. CHEST: Clear to auscultation. No respiratory distress. HEART: Regular rate and rhythm. Normal peripheral pulses. ABDOMEN: Soft, nontender, nondistended. Right CVA tenderness. EXTREMITIES: Normal range of motion. No edema. SKIN: Warm, dry, no rash. NEURO: Alert and oriented x3. PSYCH: Normal mood and affect. Course Course Emergency Course: Discussed results with patient. Verbalized understanding. Will start on Flomax as patient reports weak stream and difficulty starting his stream. He may have a chronic bladder outlet obstruction causing what looks like chronic cystitis on his CT scan. No evidence of infection in the urine. He reports he already has follow-up scheduled with a urologist in the next week. Discussed he should keep follow-up as hematuria may indicate the possibility of bladder cancer. Vital Signs Vital signs: Vital Signs Temperature 98.6 F 10/11/20 17:08 Pulse Rate 92 10/11/20 17:08 Respiratory Rate 16 10/11/20 17:08 Blood Pressure 135/90 10/11/20 17:08 Pulse Oximetry 100 10/11/20 17:08 Temperature 98.6 F 10/11/20 17:08 Pulse Rate 92 10/11/20 17:08 Respiratory Rate 16 10/11/20 17:08 Blood Pressure 135/90 10/11/20 17:08 Pulse Oximetry 100 10/11/20 17:08 MDM - Back Pain/Injury Lab Data Result diagrams: 10/11/20 17:45 10/11/20 17:45 Labs: Lab Results 10/11/20 10/11/20 10/11/20 Range/Units 17:39 17:45 17:45 WBC 9.8 (4.5-10.0) K/mm3 RBC 4.49 L (4
[2020-10-11 19:26] VITALS: BP 128/79; PULSE 88; RESP 18; O2SAT 96
== END 2020-10-11 19:29 | disposition home or self-care (01) ==
PROVIDERS: Emergency Medicine; Emergency Provider Emergency Medicine; PCP Family Medicine
DX: R31.9 Hematuria, unspecified (principal); J43.9 Emphysema, unspecified; F17.200 Nicotine dependence, unspecified, uncomplicated; K57.30 Diverticulosis of large intestine without perforation or abscess without bleeding
CPT/HCPCS: 36415; 74176; 80048; 81001; 85025; 87086; 96361; 96374; 96375; 99284; J2270; J2405; J7030

== ENCOUNTER 2020-11-03 09:34 | Emergency (ER) | payer OTHER, SELFPAY ==
--- NOTE | ~2020-11-03 | CT_ITS ---
EXAMINATION: CT abdomen pelvis w con EXAM DATE: 11/03/2020 12:27 INDICATION: Right flank pain. Hematuria. TECHNIQUE: Spiral CT of the abdomen and pelvis was performed following intravenous injection of 100 m L Omnipaque 350. Axial, coronal and sagittal images of the abdomen and pelvis were reviewed. The do se-length product (DLP) for this examination was 246.73 mGy-cm. The exposure was tailored according to patient size (auto mA exposure control), and iterative reconstruction (ASIR) was used as additiona l dose reduction technique. Comparison is made to prior examination from 10/11/2020. FINDINGS: The liver, spleen, adrenal glands and pancreas are unremarkable. Gallbladder is unremarkab le. No biliary obstruction. Portal and splenic veins are patent. Kidneys enhance symmetrically. T here is no hydronephrosis. The prostate is unremarkable. The bladder is unremarkable. There is no retroperitoneal or pelvic lymphadenopathy. There are surgical changes consistent with appendectomy. The stomach and small bowel are unremarkab le. There is expected amount of colonic stool. No free intraperitoneal gas. Mild emphysema and h yperinflation with narrow cardiac silhouette. Small linear sclerotic focus in the right mid rib late rally, probably bone island. L4-S1 laminectomies, posterior fusion. IMPRESSION: 1. No acute intra-abdominal findings. 2. Mild emphysema and hyperinflation. Reviewed, dictated and finalized at location B.
[2020-11-03 09:36] VITALS: BP 114/63; PULSE 93; RESP 20; TEMP 36.2; O2SAT 100
[2020-11-03 09:56] VITALS: BP 140/92; PULSE 95; RESP 20; O2SAT 100
[2020-11-03 10:04] LABS: Basophils Absolute Auto 0.1 K/mm3 (0.0-0.1); Basophils Percent Auto 0.9 % (0.2-1.2); Eosinophils Absolute Auto 0.3 K/mm3 (0-0.3); Eosinophils Percent Auto 2.5 % (0-4.4); Hematocrit 46.4 % (42.0-52.0); Hemoglobin 14.9 g/dL (14.0-18.0); Immature Granulocyte Absolute 0.04 K/mm3 (0.00-0.031); Immature Granulocyte Percent A 0.4 % (0-0.5); Lymphocytes Absolute Auto 3.73 K/mm3 (0.9-3.2); Lymphocytes Percent Auto 35.7 % (18.3-44.2); Mean Corpuscular HGB Conc 32.1 g/dl (32-36); Mean Corpuscular Hemoglobin 31.4 pg (26-34); Mean Corpuscular Volume 97.9 fl (80-100); Mean Platelet Volume 9.4 fl (7.4-10.4); Monocytes Absolute Auto 0.8 K/mm3 (0.1-0.6); Monocytes Percent Auto 7.4 % (2.6-8.5); Neutrophils Absolute Auto 5.6 K/mm3 (1.3-6.7); Neutrophils Percent Auto 53.1 % (45.5-73.1); Platelet Count Result 390 k/mm3 (150-375); Red Blood Count 4.74 M/mm3 (4.6-6.20); Red Cell Distribution Width 13.2 % (11.5-14.5); White Blood Count 10.4 K/mm3 (4.5-10.0)
[2020-11-03 10:13] LABS: Anion Gap 7 mmol/L (8-16); Blood Urea Nitrogen 6 mg/dL (9-20); Calcium 8.8 mg/dL (8.4-10.2); Carbon Dioxide 30 mmol/L (22-30); Chloride 108 mmol/L (98-107); Estimated CRCL calculation 89 ml/min; Estimated Glomerular Filt Rate > 60; Glucose 87 mg/dL (75-110); Potassium 3.9 mmol/L (3.4-5.0); Sodium 145 mmol/L (137-145)
[2020-11-03 10:14] LABS: Add Urine Microscopic? YES; Bilirubin Urine Negative (Negative); Blood Urine 3+ (Negative); Color Urine Yellow (Yellow); Glucose Urine UA Negative (Negative); Ketones Urine Negative (Negative); Leukocyte Esterase Ur Negative LEU/UL (Negative); Nitrate Urine Negative (Negative); Protein Urine 1+ mg/dL (Negative); Specific Grav Ur 1.014 (1.001-1.035); Urobilinogen Urine Negative mg/dL (<2.0)
[2020-11-03 10:21] LABS: Appearance Urine Clear (Clear)
[2020-11-03 10:24] LABS: RBC Urine 51-75 /hpf (0-2); Squamous Epithelial Cell Urine Few /hpf (Few); WBC Urine 0-3 /hpf (0-3)
[2020-11-03 10:25] LABS: Mucus Urine Few /lpf
--- NOTE | 2020-11-03 11:03 | ED.BACK ---
HPI - Back Pain/Injury General Chief Complaint: Back Pain/Injury Stated Complaint: back pain Time Seen by Provider: 11/03/20 09:53 Source: patient and family (significant other) Mode of arrival: ambulatory Limitations: no limitations History of Present Illness HPI Narrative: Patient is a 45 year old male who presents complaining of right flank pain and hematuria. He reports kidney stones in the past. He reports having procedure at [facility] yesterday as well as CT but does not know procedure or CT results. Patient has been seen in the past with same complaints. Patient denies other complaints. Reports history of COPD. He reports taking OTC pain medication without relief. MD elicited complaint: back pain Pertinent past history: kidney stones Related Data Home Medications Medication Instructions Recorded Confirmed budesonide-formoterol [Symbicort] 1 inh INHALATION DIRECTED 05/28/20 05/28/20 hydrocodone-acetaminophen 1 tablet PO DIRECTED 05/28/20 05/28/20 tiotropium bromide [Spiriva with 1 cap INHALATION DAILY 05/28/20 05/28/20 HandiHaler] Allergies Allergy/AdvReac Type Severity Reaction Status Date / Time ketorolac [From Toradol] Allergy Hives Verified 11/03/20 10:01 naproxen Allergy Hives Verified 11/03/20 10:01 Penicillins Allergy Hives Verified 11/03/20 10:01 tramadol Allergy Hives Verified 11/03/20 10:01 Review of Systems Review of Systems: Narrative: CONSTITUTIONAL: Denies fever, chills, or sweats. EYES: Denies visual changes, redness, or discharge. ENT: Denies rhinorrhea, congestion, sore throat, or otalgia. CARDIOVASCULAR: Denies chest pain, palpitations, or edema. RESPIRATORY: Denies cough or dyspnea. GASTROINTESTINAL: Denies abdominal pain, nausea, vomiting, or diarrhea. GENITOURINARY: Reports right flank pain, dysuria and hematuria SKIN: Denies rash or itching. MUSCULOSKELETAL: Denies back pain, joint pain, or myalgia. NEUROLOGIC: Denies headache, numbness, dizziness, or weakness. PSYCHIATRIC: Denies anxiety or depression. [facility] Past Medical History Medical History COPD (chronic obstructive pulmonary disease) Surgical History Surgical History History of orthopedic surgery Social History Social History (Updated 11/03/20 @ 11:06 by YASIR Hernandez) Smoking status: Current every day smoker Alcohol intake: current Alcohol use details: occasional Substance use: never Living arrangements: with family Gender identity (if verbalized by the patient): Male Comments At the time of signature, I have reviewed and agree with nursing past medical, surgical, social, and family history unless otherwise noted. Please see nursing chart for further information. There is no relevant family history pertinent to the presenting complaint. Exam Narrative: Exam Narrative: GENERAL: Well-appearing, well-nourished, and in no acute distress. HEAD: Normocephalic, atraumatic. EYES: EOMI. No redness or drainage. Conjunctiva are normal. ENT: Mucous membranes pink and moist. CHEST: No respiratory distress. Clear to auscultation. HEART: Regular rate and rhythm. No murmur appreciated. Normal peripheral pulses. GI: Soft, nontender without rebound, or guarding. No distention. Bowel sounds normal in all quadrants. : Right CVA tenderness with palpation MUSCULOSKELETAL: No bony tenderness. EXTREMITIES: Normal range of motion. No edema. SKIN: Warm, dry, no rash. NEURO: No focal deficits. Alert and oriented x3. Gait steady. PSYCH: Normal affect. No signs of depression or anxiety. Course Consultations Consultation #1: Discussed with Dr. Morocho who reports that yesterday's CT and cystoscopy revealed no results, patient to follow up next week as scheduled. Date: 11/03/20 Time: 12:02 Vital Signs Vital signs: Vital Signs Temperature 36.2 C L 11/03/20 09:36 Pulse R
[2020-11-03] MEDS: MORPHINE SULFATE (*CRX) 4 MG/ML INJ IV PUSH (11:06)
[2020-11-03] MEDS: ONDANSETRON INJ 4 MG/2 ML VIAL IV PUSH (11:07)
[2020-11-03] MEDS: HYDROmorphone HCL INJ (*CRX) 1 MG/ML SYR 0.5 MG IV PUSH (12:11)
[2020-11-03 13:00] VITALS: BP 138/78; PULSE 84; RESP 16; O2SAT 99
[2020-11-03 13:15] VITALS: BP 142/88; PULSE 86; RESP 15; O2SAT 98
== END 2020-11-03 13:28 | disposition home or self-care (01) ==
LOC: ANHED 09:57
PROVIDERS: Emergency Medicine; Emergency Provider Nurse Practitioner; PCP Family Medicine
DX: R10.9 Unspecified abdominal pain (principal); J44.9 Chronic obstructive pulmonary disease, unspecified; F17.200 Nicotine dependence, unspecified, uncomplicated
CPT/HCPCS: 36415; 74177; 80048; 81001; 85025; 96374; 96375; 99284; J1170; J2270; J2405; Q9967

== ENCOUNTER 2020-12-15 21:06 | Emergency (ER) | payer OTHER, SELFPAY ==
[2020-12-15 21:10] VITALS: BP 137/72; PULSE 95; RESP 18; TEMP 36.5; O2SAT 98
--- NOTE | 2020-12-15 21:59 | PC.NURSE ---
[id number] no answer when called to be taken to room
== END 2020-12-15 21:59 | disposition left against medical advice (07) ==
DX: Z53.21 Procedure and treatment not carried out due to patient leaving prior to being seen by health care provider (principal)
CPT/HCPCS: 99199

== ENCOUNTER 2020-12-31 12:40 | Emergency (ER) | payer OTHER, SELFPAY ==
--- NOTE | ~2020-12-31 | CT_ITS ---
EXAMINATION: CT abdomen pelvis wo con DATE: 12/31/2020 14:10 INDICATION: Left flank pain TECHNIQUE: Computed tomography (CT) of the abdomen and pelvis was performed without intravenous contr ast. Automated exposure control and iterative reconstruction technique were employed. The dose-length product was 169.44 mGy-cm. COMPARISON: 11/03/2020 FINDINGS: Mild emphysema at the lung bases. Visualized inferior heart is normal. No pericardial or pleural effu eva. Liver, gallbladder, spleen, pancreas and bilateral adrenal glands are normal. Kidneys and urete rs are normal with no urolithiasis, hydroureteronephrosis or perinephric/ureteral stranding. Bladder and prostate are unremarkable. Appendix is not visualized and there is a suture line at the tip of th e cecum consistent with prior appendectomy. No abnormal bowel wall thickening or obstruction. No free intraperitoneal gas or fluid. No pathologically enlarged abdominal or pelvic lymphadenopathy. L4 and L5 laminectomies and posterior spinal fusion with bilateral vertical thania and pedicle screw fixation extending from L3-S1. IMPRESSION: 1. No acute intra-abdominal/pelvic process. 2. Mild emphysema. Reviewed, dictated and finalized at location A.
[2020-12-31 12:42] VITALS: BP 116/70; PULSE 92; RESP 20; TEMP 36.8; O2SAT 100
[2020-12-31 12:54] LABS: Basophils Absolute Auto 0.1 K/mm3 (0.0-0.1); Eosinophils Absolute Auto 0.2 K/mm3 (0-0.3); Eosinophils Percent Auto 2.1 % (0-4.4); Hematocrit 44.9 % (42.0-52.0); Hemoglobin 14.4 g/dL (14.0-18.0); Immature Granulocyte Absolute 0.03 K/mm3 (0.00-0.031); Immature Granulocyte Percent A 0.3 % (0-0.5); Lymphocytes Absolute Auto 2.99 K/mm3 (0.9-3.2); Lymphocytes Percent Auto 33.1 % (18.3-44.2); Mean Corpuscular HGB Conc 32.1 g/dl (32-36); Mean Corpuscular Hemoglobin 31.2 pg (26-34); Mean Corpuscular Volume 97.4 fl (80-100); Mean Platelet Volume 9.4 fl (7.4-10.4); Monocytes Absolute Auto 0.7 K/mm3 (0.1-0.6); Monocytes Percent Auto 7.6 % (2.6-8.5); Neutrophils Absolute Auto 5.1 K/mm3 (1.3-6.7); Neutrophils Percent Auto 55.9 % (45.5-73.1); Platelet Count Result 385 k/mm3 (150-375); Red Blood Count 4.61 M/mm3 (4.6-6.20); Red Cell Distribution Width 13.1 % (11.5-14.5)
[2020-12-31 13:03] LABS: Anion Gap 10 mmol/L (8-16); Blood Urea Nitrogen 5 mg/dL (9-20); Calcium 9.8 mg/dL (8.4-10.2); Carbon Dioxide 30 mmol/L (22-30); Chloride 102 mmol/L (98-107); Estimated CRCL calculation 81 ml/min; Estimated Glomerular Filt Rate > 60; Glucose 90 mg/dL (65-110); Potassium 4.1 mmol/L (3.4-5.0); Sodium 142 mmol/L (137-145)
[2020-12-31 13:07] LABS: Add Urine Microscopic? YES; Appearance Urine Clear (Clear); Bilirubin Urine Negative (Negative); Blood Urine 3+ (Negative); Color Urine Yellow (Yellow); Glucose Urine UA Negative (Negative); Ketones Urine Negative (Negative); Leukocyte Esterase Ur Negative LEU/UL (Negative); Nitrate Urine Negative (Negative); Protein Urine Negative (Negative); RBC Urine >75 /hpf (0-2); Squamous Epithelial Cell Urine Rare /hpf (Few); Urobilinogen Urine Negative mg/dL (<2.0)
[2020-12-31] MEDS: PROMETHAZINE HCL 25 MG/ML AMPUL 12.5 MG IV PUSH (14:34)
[2020-12-31] MEDS: SODIUM CHLORIDE 0.9% IV 1,000 ML 999 ML IV CONT (14:34)
[2020-12-31] MEDS: MORPHINE SULFATE (*CRX) 4 MG/ML INJ IV PUSH (14:34)
[2020-12-31 14:35] VITALS: BP 125/97; PULSE 70; RESP 14; O2SAT 98
--- NOTE | 2020-12-31 14:40 | ED.GENADULT ---
HPI - General Adult General Chief complaint: Back Pain/Injury Stated complaint: back pain Time Seen by Provider: 12/31/20 13:56 Source: patient, RN notes reviewed and old records reviewed Mode of arrival: ambulatory Limitations: no limitations History of Present Illness HPI narrative: Patient is a 45-year-old male who presents to emergency department for evaluation of right flank pain that began acutely 2 days ago history of urolithiasis patient notes sharp stabbing pain is taken hydrocodone no relief notes some nausea and vomiting presents uncomfortable but not distressed Related Data Home Medications Medication Instructions Recorded Confirmed budesonide-formoterol [Symbicort] 1 inh INHALATION DIRECTED 05/28/20 05/28/20 hydrocodone-acetaminophen 1 tablet PO DIRECTED 05/28/20 05/28/20 tiotropium bromide [Spiriva with 1 cap INHALATION DAILY 05/28/20 05/28/20 HandiHaler] Allergies Allergy/AdvReac Type Severity Reaction Status Date / Time ketorolac [From Toradol] Allergy Hives Verified 11/03/20 10:01 naproxen Allergy Hives Verified 11/03/20 10:01 Penicillins Allergy Hives Verified 11/03/20 10:01 tramadol Allergy Hives Verified 11/03/20 10:01 Review of Systems Review of Systems: All systems reviewed & are unremarkable except as noted in HPI and below PMFSH Past Medical History Medical History (Updated 12/31/20 @ 15:38 by Scott Beasley PA-C) COPD (chronic obstructive pulmonary disease) Urolithiasis Surgical History Surgical History History of orthopedic surgery Social History Social History Smoking status: Current every day smoker Alcohol intake: current Alcohol use details: occasional Substance use: never Gender identity (if verbalized by the patient): Male Exam Narrative: GENERAL: Well-appearing, well-nourished,uncomfortable and in no acute distress. HEAD: Normocephalic, atraumatic. EYES: PERRLA and EOMI. ENT: Nares clear, no rhinorrhea or epistaxis. Mucous membranes moist. CHEST: Clear to auscultation. No respiratory distress. No wheezes rales or rhonchi HEART: Regular rate and rhythm. No murmur heard. Normal peripheral pulses. ABDOMEN: Soft, nontender, nondistended EXTREMITIES: Normal range of motion. No edema. SKIN: Warm, dry, no rash. NEURO: No focal deficits. Alert and oriented x3. PSYCH: Normal mood and affect. Course Course Emergency Course: Patient evaluated the emergency department has blood in his urine potentially passed a stone will be referred to urology no other high risk changes ABCs and vital signs intact and stable made aware of his case findings treatment plan and diagnosis Vital Signs Vital signs: Vital Signs Temperature 98.3 F 12/31/20 12:42 Pulse Rate 92 12/31/20 12:42 Respiratory Rate 20 12/31/20 12:42 Blood Pressure 116/70 12/31/20 12:42 Pulse Oximetry 100 12/31/20 12:42 Temperature 98.3 F 12/31/20 12:42 Pulse Rate 70 12/31/20 14:35 Respiratory Rate 14 12/31/20 14:35 Blood Pressure 125/97 H 12/31/20 14:35 Pulse Oximetry 98 12/31/20 14:35 Medical Decision Making MDM Narrative Medical decision making narrative: Patient evaluated for flank pain no kidney stone noted on scan will be discharged home with outpatient follow-up with urology provided with reasons to return Vital Signs Vital Signs: Vital Signs Temperature 98.3 F 12/31/20 12:42 Pulse Rate 92 12/31/20 12:42 Respiratory Rate 20 12/31/20 12:42 Blood Pressure 116/70 12/31/20 12:42 Pulse Oximetry 100 12/31/20 12:42 Temperature 98.3 F 12/31/20 12:42 Pulse Rate 70 12/31/20 14:35 Respiratory Rate 14 12/31/20 14:35 Blood Pressure 125/97 H 12/31/20 14:35 Pulse Oximetry 98 12/31/20 14:35 Lab Data Result diagrams: 12/31/20 12:46 12/31/20 12:46 Labs: Lab Results 12/31/20
[2020-12-31 15:00] VITALS: BP 130/86; PULSE 80; RESP 12; O2SAT 100
[2020-12-31 15:25] VITALS: PULSE 78; RESP 12; O2SAT 100
[2020-12-31 15:31] VITALS: PULSE 80; RESP 12; O2SAT 100
== END 2020-12-31 15:45 | disposition home or self-care (01) ==
PROVIDERS: Emergency Provider Emergency Medicine; PCP Family Medicine
DX: R10.9 Unspecified abdominal pain (principal); R31.9 Hematuria, unspecified; J43.9 Emphysema, unspecified; Z87.442 Personal history of urinary calculi; F17.200 Nicotine dependence, unspecified, uncomplicated
CPT/HCPCS: 36415; 74176; 80048; 81001; 85025; 96361; 96374; 96375; 99284; J0131; J2270; J2550; J7030

== ENCOUNTER 2021-01-01 23:26 | Emergency (ER) | payer OTHER, SELFPAY ==
--- NOTE | ~2021-01-01 | CT_ITS ---
EXAMINATION: CT abdomen pelvis wo con DATE: 01/02/2021 03:35 INDICATION: Left flank pain. TECHNIQUE: Computed tomography (CT) of the abdomen and pelvis was performed without intravenous contr ast. Automated exposure control and iterative reconstruction technique were employed. The dose-length product was 175.65 mGy-cm. COMPARISON: 12/31/2020 FINDINGS: Mild emphysema at the lung bases. Heart size is normal. No pericardial or pleural effusion. Liver, ga llbladder, spleen, pancreas, bilateral adrenal glands and kidneys are normal. Postoperative change at the tip the cecum consistent with prior appendectomy. Bowels are normal. Bladder and prostate are un remarkable. No free intraperitoneal gas or fluid. No pathologically enlarged abdominal or pelvic lymp hadenopathy. L4 and L5 laminectomies and posterior spinal fusion with bilateral vertical thania and pedi manuela screw fixation extending from L3-S1. IMPRESSION: 1. No acute intra-abdominal/pelvic process. 2. Mild emphysema. Reviewed, dictated and finalized at location A.
[2021-01-01 23:35] VITALS: BP 129/81; PULSE 90; RESP 20; TEMP 36.8; O2SAT 99
[2021-01-02 02:43] VITALS: BP 117/81; PULSE 84; RESP 16; O2SAT 97
[2021-01-02] MEDS: MORPHINE SULFATE (*CRX) 4 MG/ML INJ IV PUSH ×2 (03:38→05:26)
[2021-01-02] MEDS: SODIUM CHLORIDE 0.9% IV 1,000 ML 999 ML IV CONT (03:39)
[2021-01-02 03:57] LABS: Basophils Absolute Auto 0.1 K/mm3 (0.0-0.1); Basophils Percent Auto 0.7 % (0.2-1.2); Eosinophils Absolute Auto 0.4 K/mm3 (0-0.3); Eosinophils Percent Auto 3.1 % (0-4.4); Hematocrit 42.1 % (42.0-52.0); Hemoglobin 13.6 g/dL (14.0-18.0); Immature Granulocyte Absolute 0.04 K/mm3 (0.00-0.031); Immature Granulocyte Percent A 0.4 % (0-0.5); Lymphocytes Absolute Auto 3.74 K/mm3 (0.9-3.2); Lymphocytes Percent Auto 33.1 % (18.3-44.2); Mean Corpuscular HGB Conc 32.3 g/dl (32-36); Mean Corpuscular Hemoglobin 31.4 pg (26-34); Mean Corpuscular Volume 97.2 fl (80-100); Mean Platelet Volume 9.9 fl (7.4-10.4); Monocytes Absolute Auto 0.9 K/mm3 (0.1-0.6); Monocytes Percent Auto 7.5 % (2.6-8.5); Neutrophils Absolute Auto 6.2 K/mm3 (1.3-6.7); Neutrophils Percent Auto 55.2 % (45.5-73.1); Platelet Count Result 400 k/mm3 (150-375); Red Blood Count 4.33 M/mm3 (4.6-6.20); Red Cell Distribution Width 12.9 % (11.5-14.5); White Blood Count 11.3 K/mm3 (4.5-10.0)
[2021-01-02 04:11] LABS: Add Urine Microscopic? YES; Appearance Urine Clear (Clear); Bilirubin Urine Negative (Negative); Blood Urine 3+ (Negative); Color Urine Yellow (Yellow); Glucose Urine UA Negative (Negative); Ketones Urine Negative (Negative); Leukocyte Esterase Ur Negative LEU/UL (Negative); Mucus Urine Rare /lpf; Nitrate Urine Negative (Negative); Protein Urine Negative (Negative); RBC Urine >75 /hpf (0-2); Specific Grav Ur 1.012 (1.001-1.035); Squamous Epithelial Cell Urine Rare /hpf (Few); Urobilinogen Urine Negative mg/dL (<2.0)
[2021-01-02 04:14] LABS: Alanine Aminotransferase 19 U/L (4-50); Albumin Level 4.1 g/dL (3.5-5.1); Alkaline Phosphatase 108 U/L (38-126); Anion Gap 8 mmol/L (8-16); Aspartate Amino Transferase 25 U/L (17-59); Bilirubin,Total 0.4 mg/dL (0.2-1.3); Blood Urea Nitrogen 7 mg/dL (9-20); Calcium 9.6 mg/dL (8.4-10.2); Carbon Dioxide 28 mmol/L (22-30); Chloride 105 mmol/L (98-107); Estimated CRCL calculation 100 ml/min; Estimated Glomerular Filt Rate > 60; Glucose 91 mg/dL (65-110); Lipase 109 U/L (23-300); Potassium 4.1 mmol/L (3.4-5.0); Sodium 141 mmol/L (137-145)
[2021-01-02 04:45] VITALS: BP 106/70; PULSE 94; RESP 16; O2SAT 98
--- NOTE | 2021-01-02 05:09 | ED.GENADULT ---
HPI - General Adult General Chief complaint: Back Pain/Injury Stated complaint: back pain Time Seen by Provider: 01/02/21 03:07 History of Present Illness HPI narrative: Patient 45-year-old gentleman who presents the emergency department chief complaint of left-sided flank pain. Patient reports he has history of kidney stones and reports that he has severe pain in his left flank. Patient reports has been seen in the emergency department and was told that he did not have a stone but states that this currently feels just like whenever he has had a stone before in the past. Patient reports that he has a urologist at another facility that he sees denies fever or chills reports that he has had some mild nausea with this patient reports that he has been able to pass his stones before in the past and has not required stent or urological procedure. Related Data Home Medications Medication Instructions Recorded Confirmed budesonide-formoterol [Symbicort] 1 inh INHALATION DIRECTED 05/28/20 05/28/20 hydrocodone-acetaminophen 1 tablet PO DIRECTED 05/28/20 05/28/20 tiotropium bromide [Spiriva with 1 cap INHALATION DAILY 05/28/20 05/28/20 HandiHaler] Allergies Allergy/AdvReac Type Severity Reaction Status Date / Time ketorolac [From Toradol] Allergy Hives Verified 01/02/21 02:35 naproxen Allergy Hives Verified 11/03/20 10:01 Penicillins Allergy Hives Verified 01/02/21 02:35 tramadol Allergy Hives Verified 01/02/21 02:35 Review of Systems Review of Systems: A 10 system review of systems was completed on the patient and is negative except for what is stated in the HPI. Nursing and ancillary documentation was reviewed. [facility]LY [facility] Past Medical History Medical History COPD (chronic obstructive pulmonary disease) Urolithiasis Surgical History Surgical History History of orthopedic surgery Social History Social History Smoking status: Current every day smoker Alcohol intake: current Alcohol use details: occasional Substance use: never Gender identity (if verbalized by the patient): Male Exam Narrative: GENERAL: Well-appearing, well-nourished, and in no acute distress. HEAD: Normocephalic, atraumatic. EYES: PERRLA and EOMI. ENT: Nares clear, no rhinorrhea or epistaxis. Mucous membranes moist. NECK: Supple. CHEST: Clear to auscultation. No respiratory distress. HEART: Regular rate and rhythm. No murmur heard. Normal peripheral pulses. ABDOMEN: Soft, nontender, nondistended, normal active bowel sounds. EXTREMITIES: Normal range of motion. No edema. SKIN: Warm, dry, no rash. NEURO: No focal deficits. Alert and oriented x3. PSYCH: Normal mood and affect. Course Vital Signs Vital signs: Vital Signs Temperature 36.8 C 01/01/21 23:35 Pulse Rate 90 01/01/21 23:35 Respiratory Rate 20 01/01/21 23:35 Blood Pressure 129/81 01/01/21 23:35 Pulse Oximetry 99 01/01/21 23:35 Temperature 36.8 C 01/01/21 23:35 Pulse Rate 94 01/02/21 04:45 Respiratory Rate 16 01/02/21 04:45 Blood Pressure 106/70 01/02/21 04:45 Pulse Oximetry 98 01/02/21 04:45 Medical Decision Making Vital Signs Vital Signs: Vital Signs Temperature 36.8 C 01/01/21 23:35 Pulse Rate 90 01/01/21 23:35 Respiratory Rate 20 01/01/21 23:35 Blood Pressure 129/81 01/01/21 23:35 Pulse Oximetry 99 01/01/21 23:35 Temperature 36.8 C 01/01/21 23:35 Pulse Rate 94 01/02/21 04:45 Respiratory Rate 16 01/02/21 04:45 Blood Pressure 106/70 01/02/21 04:45 Pulse Oximetry 98 01/02/21 04:45 Lab Data Result diagrams: 01/02/21 03:41 01/02/21 03:41 Labs: Lab Results 01/02/21 01/02/21 01/02/21 Range/Units 03:41 03:41 03:52 WBC 11.3 H (4.5-10.0) K/mm3 RBC 4.33 L
[2021-01-02 05:32] VITALS: BP 123/65; PULSE 80; RESP 18; O2SAT 100
== END 2021-01-02 05:32 | disposition home or self-care (01) ==
PROVIDERS: Emergency Provider Emergency Medicine; PCP Family Medicine
DX: N39.0 Urinary tract infection, site not specified (principal); J43.9 Emphysema, unspecified; Z87.442 Personal history of urinary calculi; F17.200 Nicotine dependence, unspecified, uncomplicated
CPT/HCPCS: 36415; 74176; 80053; 81001; 83690; 85025; 87086; 87088; 96361; 96374; 96376; 99284; A9270; J2270; J7030

== ENCOUNTER 2021-01-24 09:07 | Emergency (ER) | payer OTHER, SELFPAY ==
--- NOTE | ~2021-01-24 | CT_ITS ---
EXAMINATION: CT abdomen pelvis wo con DATE: 01/24/2021 12:11 INDICATION: Flank pain. TECHNIQUE: Computed tomography (CT) of the abdomen and pelvis was performed without intravenous contr ast. Automated exposure control and iterative reconstruction technique were employed. The dose-length product was 272.14 mGy-cm. COMPARISON: CT abdomen and pelvis 01/02/2021 FINDINGS: The visualized portions of the lung bases demonstrate emphysema and mild atelectasis. No pl eural effusion. The heart size is normal. No pericardial effusion. The liver, gallbladder, spleen, pa ncreas, adrenal glands, and kidneys are normal. The prostate is mildly enlarged. There are no dilated loops of bowel. There are changes of appendectomy. There are no pathologically enlarged lymph nodes. There is no free intraperitoneal fluid. There is mild lumbar spondylosis. There are changes of poste rior fusion procedure from L4 to S1. IMPRESSION: 1. No urolithiasis. 2. Emphysema. Reviewed, dictated and finalized at location A.
[2021-01-24 09:27] VITALS: BP 138/75; PULSE 92; RESP 16; TEMP 36.8; O2SAT 98
[2021-01-24 10:13] LABS: Basophils Absolute Auto 0.1 K/mm3 (0.0-0.1); Basophils Percent Auto 0.6 % (0.2-1.2); Eosinophils Absolute Auto 0.1 K/mm3 (0-0.3); Eosinophils Percent Auto 1.3 % (0-4.4); Hematocrit 47.4 % (42.0-52.0); Hemoglobin 15.3 g/dL (14.0-18.0); Immature Granulocyte Absolute 0.04 K/mm3 (0.00-0.031); Immature Granulocyte Percent A 0.4 % (0-0.5); Lymphocytes Absolute Auto 2.43 K/mm3 (0.9-3.2); Lymphocytes Percent Auto 23.5 % (18.3-44.2); Mean Corpuscular HGB Conc 32.3 g/dl (32-36); Mean Corpuscular Hemoglobin 31.3 pg (26-34); Mean Corpuscular Volume 96.9 fl (80-100); Mean Platelet Volume 9.7 fl (7.4-10.4); Monocytes Absolute Auto 0.8 K/mm3 (0.1-0.6); Monocytes Percent Auto 7.8 % (2.6-8.5); Neutrophils Absolute Auto 6.9 K/mm3 (1.3-6.7); Neutrophils Percent Auto 66.4 % (45.5-73.1); Platelet Count Result 507 k/mm3 (150-375); Red Blood Count 4.89 M/mm3 (4.6-6.20); Red Cell Distribution Width 12.7 % (11.5-14.5); White Blood Count 10.3 K/mm3 (4.5-10.0)
[2021-01-24 10:24] LABS: Add Urine Microscopic? YES; Appearance Urine Clear (Clear); Bilirubin Urine Negative (Negative); Blood Urine 3+ (Negative); Color Urine Yellow (Yellow); Glucose Urine UA Negative (Negative); Ketones Urine Negative (Negative); Leukocyte Esterase Ur Negative LEU/UL (Negative); Mucus Urine Rare /lpf; Nitrate Urine Negative (Negative); Protein Urine 1+ mg/dL (Negative); RBC Urine >75 /hpf (0-2); Specific Grav Ur 1.011 (1.001-1.035); Squamous Epithelial Cell Urine Rare /hpf (Few); Urobilinogen Urine Negative mg/dL (<2.0); WBC Urine 0-3 /hpf
[2021-01-24 10:28] LABS: Anion Gap 12 mmol/L (8-16); Blood Urea Nitrogen 7 mg/dL (9-20); Calcium 10.5 mg/dL (8.4-10.2); Carbon Dioxide 28 mmol/L (22-30); Chloride 101 mmol/L (98-107); Estimated CRCL calculation 100 ml/min; Estimated Glomerular Filt Rate > 60; Glucose 107 mg/dL (65-110); Potassium 4.4 mmol/L (3.4-5.0); Sodium 141 mmol/L (137-145)
[2021-01-24 11:05] VITALS: BP 127/77; PULSE 101; RESP 16; TEMP 36.6; O2SAT 98
[2021-01-24] MEDS: ONDANSETRON INJ 4 MG/2 ML VIAL IV PUSH (11:18)
[2021-01-24] MEDS: MORPHINE SULFATE (*CRX) 4 MG/ML INJ IV PUSH (11:18)
[2021-01-24] MEDS: FAMOTIDINE 20 MG/2 ML VIAL IV PUSH (11:18)
[2021-01-24] MEDS: LACTATED RINGERS 1,000 ML 999 ML IV CONT (11:19)
[2021-01-24 11:48] VITALS: TEMP 36.6
--- NOTE | 2021-01-24 12:46 | ED.GENADULT ---
HPI - General Adult General Chief complaint: Back Pain/Injury <GABRIELA Trinh Last Filed: 01/24/21 12:53> Stated complaint: back pain <GABRIELA Trinh Last Filed: 01/24/21 12:53> Time Seen by Provider: 01/24/21 11:06 <GABRIELA Trinh Last Filed: 01/24/21 12:53> Source: patient and RN notes reviewed <GABRIELA Trinh Last Filed: 01/24/21 12:53> Mode of arrival: ambulatory <GABRIELA Trinh Last Filed: 01/24/21 12:53> Limitations: no limitations <GABRIELA Trinh Last Filed: 01/24/21 12:53> History of Present Illness HPI narrative: For evaluation of flank pain on the left side began yesterday notes history of kidney stones took his home narcotics with no improvement notes he had a few episodes of nausea with emesis patient on arrival appears uncomfortable not distressed denies hematuria any bowel habit issues or any chest pain shortness of breath pain is localized to the left flank <GABRIELA Trinh Last Filed: 01/24/21 12:53> Related Data Home medications: Home Medications Medication Instructions Recorded Confirmed budesonide-formoterol [Symbicort] 1 inh INHALATION DIRECTED 05/28/20 05/28/20 hydrocodone-acetaminophen 1 tablet PO DIRECTED 05/28/20 05/28/20 tiotropium bromide [Spiriva with 1 cap INHALATION DAILY 05/28/20 05/28/20 HandiHaler] <GABRIELA Trinh Last Filed: 01/24/21 12:53> Allergies/adverse reactions: Allergies Allergy/AdvReac Type Severity Reaction Status Date / Time ketorolac [From Toradol] Allergy Hives Verified 01/02/21 02:35 naproxen Allergy Hives Verified 11/03/20 10:01 Penicillins Allergy Hives Verified 01/02/21 02:35 tramadol Allergy Hives Verified 01/02/21 02:35 <GABRIELA Trinh Last Filed: 01/24/21 12:53> Review of Systems Review of Systems: All systems reviewed & are unremarkable except as noted in HPI and below <Scott Beasley PA-C - Last Filed: 01/24/21 12:53> [facility] Past Medical History Medical History: Medical History COPD (chronic obstructive pulmonary disease) Urolithiasis <Scott Beasley PA-C - Last Filed: 01/24/21 12:53> Surgical History Surgical History: Surgical History History of orthopedic surgery <Scott Beasley PA-C - Last Filed: 01/24/21 12:53> Social History Social History: Social History Smoking status: Current every day smoker Alcohol intake: current Alcohol use details: occasional Substance use: never Gender identity (if verbalized by the patient): Male <Scott Beasley PA-C - Last Filed: 01/24/21 12:53> Exam Narrative: GENERAL: Well-appearing, well-nourished, and uncomfortable in no acute distress. HEAD: Normocephalic, atraumatic. EYES: PERRLA and EOMI. ENT: Nares clear, no rhinorrhea or epistaxis. Mucous membranes moist. CHEST: Clear to auscultation. No respiratory distress. No wheezes rales or rhonchi HEART: Regular rate and rhythm. No murmur heard. Normal peripheral pulses. ABDOMEN: Soft, nontender, nondistended EXTREMITIES: Normal range of motion. No edema. SKIN: Warm, dry, no rash. NEURO: No focal deficits. Alert and oriented x3. PSYCH: Normal mood and affect. <Scott Beasley PA-C - Last Filed: 01/24/21 12:53> Course Course Emergency Course: Patient evaluated there are no concerning findings in the blood work or imaging he did have hematuria there is a remote possibility that he has passed a stone he has been advised to follow with his urologist and notes that he will do so has also been advised to follow with his primary care he was hydrated medicated and is felt appropriate for outpatient reevaluation and given reasons to return <Scott Bealsey PA-C - Last Filed: 01/24/21 12:53> Vital
[2021-01-24 13:01] VITALS: TEMP 36.6
[2021-01-24 13:14] VITALS: BP 119/68; PULSE 87; RESP 14; O2SAT 98
== END 2021-01-24 13:20 | disposition home or self-care (01) ==
PROVIDERS: Emergency Provider General Practice; PCP Family Medicine
DX: R10.9 Unspecified abdominal pain (principal); M54.9 Dorsalgia, unspecified; R31.9 Hematuria, unspecified; J44.9 Chronic obstructive pulmonary disease, unspecified; F17.200 Nicotine dependence, unspecified, uncomplicated; Z79.891 Long term (current) use of opiate analgesic
CPT/HCPCS: 36415; 74176; 80048; 81001; 85025; 96361; 96374; 96375; 99284; J0131; J2270; J2405; J7120

== ENCOUNTER 2021-01-24 23:40 | Emergency (ER) | payer OTHER, SELFPAY ==
--- NOTE | ~2021-01-24 | CT_ITS ---
EXAMINATION: CT abdomen pelvis wo con EXAM DATE: 01/25/2021 01:28 INDICATION: Left flank pain. TECHNIQUE: Spiral CT of the abdomen and pelvis was performed without contrast. Axial, coronal and sag ittal images were reviewed. The dose-length product (DLP) for this examination was 167.44 mGy-cm. T he exposure was tailored according to patient size (auto mA exposure control), and iterative reconstr uction (ASIR) was used as additional dose reduction technique. Comparison is made to prior examinatio n from 01/24/2021. FINDINGS: There is no nephrolithiasis or hydronephrosis. The prostate is unremarkable. The bladder is unremarkable. The liver, spleen, adrenal glands and pancreas are unremarkable. Gallbladder is u nremarkable. No biliary obstruction. There is no retroperitoneal or pelvic lymphadenopathy. There are surgical changes consistent with appendectomy. The stomach and small bowel are unremarkab le. There is expected amount of colonic stool. No free intraperitoneal gas. The heart is normal in size. There are no pericardial or pleural effusions. Mild basilar emphysema. Lungs are hyperinfl ated. Lower lumbar posterior fusion, laminectomies. IMPRESSION: 1. No nephrolithiasis, hydronephrosis or acute intra-abdominal findings. 2. Emphysema, hyperinflation. Reviewed, dictated and finalized at location A.
[2021-01-24 23:54] VITALS: BP 102/58; PULSE 87; RESP 21; TEMP 36.6; O2SAT 96
[2021-01-25 00:16] LABS: Alanine Aminotransferase 19 U/L (4-50); Albumin Level 4.5 g/dL (3.5-5.1); Alkaline Phosphatase 91 U/L (38-126); Anion Gap 8 mmol/L (8-16); Aspartate Amino Transferase 22 U/L (17-59); Bilirubin,Total 0.3 mg/dL (0.2-1.3); Blood Urea Nitrogen 9 mg/dL (9-20); Calcium 9.3 mg/dL (8.4-10.2); Carbon Dioxide 27 mmol/L (22-30); Chloride 108 mmol/L (98-107); Estimated CRCL calculation 89 ml/min; Estimated Glomerular Filt Rate > 60; Glucose 98 mg/dL (65-110); Lipase 28 U/L (23-300); Potassium 4.2 mmol/L (3.4-5.0); Sodium 143 mmol/L (137-145)
[2021-01-25 00:21] LABS: Basophils Absolute Auto 0.1 K/mm3 (0.0-0.1); Basophils Percent Auto 0.7 % (0.2-1.2); Eosinophils Absolute Auto 0.2 K/mm3 (0-0.3); Eosinophils Percent Auto 1.5 % (0-4.4); Hemoglobin 13.4 g/dL (14.0-18.0); Immature Granulocyte Absolute 0.05 K/mm3 (0.00-0.031); Immature Granulocyte Percent A 0.4 % (0-0.5); Lymphocytes Absolute Auto 3.25 K/mm3 (0.9-3.2); Lymphocytes Percent Auto 25.3 % (18.3-44.2); Mean Corpuscular HGB Conc 31.9 g/dl (32-36); Mean Corpuscular Hemoglobin 31.7 pg (26-34); Mean Corpuscular Volume 99.3 fl (80-100); Mean Platelet Volume 9.6 fl (7.4-10.4); Monocytes Percent Auto 7.7 % (2.6-8.5); Neutrophils Absolute Auto 8.3 K/mm3 (1.3-6.7); Neutrophils Percent Auto 64.4 % (45.5-73.1); Platelet Count Result 416 k/mm3 (150-375); Red Blood Count 4.23 M/mm3 (4.6-6.20); White Blood Count 12.8 K/mm3 (4.5-10.0)
--- NOTE | 2021-01-25 01:17 | ED.ABDPAIN ---
HPI - Abdominal Pain General Chief Complaint: Back Pain/Injury Stated Complaint: kidney stone, left side Time Seen by Provider: 01/25/21 01:15 Source: patient Mode of arrival: ambulatory Limitations: no limitations History of Present Illness HPI narrative: Patient is a 45 year-old male complaining of left flank pain, 10 out of 10, sharp, nonradiating accompanied by nausea and vomiting, hematuria, that started today. Patient states that he has a history of kidney stones and has same the symptoms when he has them. Patient denies any chest pain, shortness of breath, abdominal pain, diarrhea, fever or chills. Patient was seen here today for the same complaint. Multiple ER visits for the same complaint. Related Data Home Medications Medication Instructions Recorded Confirmed budesonide-formoterol [Symbicort] 1 inh INHALATION DIRECTED 05/28/20 05/28/20 hydrocodone-acetaminophen 1 tablet PO DIRECTED 05/28/20 05/28/20 tiotropium bromide [Spiriva with 1 cap INHALATION DAILY 05/28/20 05/28/20 HandiHaler] Allergies Allergy/AdvReac Type Severity Reaction Status Date / Time ketorolac [From Toradol] Allergy Hives Verified 01/25/21 00:50 naproxen Allergy Hives Verified 01/25/21 00:50 Penicillins Allergy Hives Verified 01/25/21 00:50 tramadol Allergy Hives Verified 01/25/21 00:50 Review of Systems Review of Systems: All systems reviewed & are unremarkable except as noted in HPI and below Constitutional: Constitutional: Denies body ache(s), Denies chills, Denies excessive sweating, Denies fatigue, Denies fever(s), Denies headache(s), Denies lethargy, Denies malaise, Denies weakness and Denies weight loss Eyes: Eyes: Denies blurry vision, Denies change in vision and Denies loss of vision ENT: Denies dizziness, Denies ear discharge, Denies headache(s), Denies lip swelling, Denies epistaxis, Denies nasal congestion, Denies neck pain, Denies throat swelling and Denies tongue swelling Cardiovascular: Cardiovascular: Denies chest pain, Denies chest pain at rest, Denies chest pain with activity, Denies diaphoresis, Denies rapid heart rate, Denies edema, Denies irregular heart rhythm, Denies lightheadedness, Denies palpitations, Denies dyspnea and Denies dyspnea on exertion Respiratory: Respiratory: Denies chest congestion, Denies cough, Denies hemoptysis, Denies dyspnea and Denies dyspnea on exertion Gastrointestinal: Gastrointestinal: Denies abdominal pain, Denies melena, Denies hematochezia, Denies diarrhea, Denies nausea, Denies vomiting and Denies hematemesis Musculoskeletal: Musculoskeletal: Denies abnormal gait, Denies deformity, Denies joint swelling, Denies limited range of motion, Denies neck pain and Denies numbness Neurologic: Denies Abnormal speech present, Denies abnormal gait, Denies confusion, Denies dizziness, Denies headache(s), Denies focal weakness, Denies loss of vision, Denies numbness, Denies Other visual disturbances, Denies Sensory deficit (Neuro) and Denies weakness Psychiatric: Psychiatric: Denies confusion, Denies depression, Denies auditory hallucinations, Denies homicidal ideation and Denies suicidal ideation Endocrine: Endocrine: Denies cold intolerance, Denies excessive sweating, Denies fatigue, Denies heat intolerance and Denies palpitations Hematologic/Lymphatic: Hematologic/Lymphatic: Denies easy bleeding and Denies easy bruising Allergic/Immunologic: Allergic/Immunologic: Denies lip swelling, Denies throat swelling and Denies tongue swelling PMFSH Past Medical History Medical History COPD (chronic obstructive pulmonary disease) Urolithiasis Surgical History Surgical History History of orthopedic surgery Social History Social History Smoking status: Current every day smoker Alcohol intake: current Alcohol use details: occasiona
[2021-01-25] MEDS: PROMETHAZINE HCL 25 MG/ML AMPUL 12.5 MG IV PUSH (01:37)
[2021-01-25] MEDS: TAMSULOSIN HCL 0.4 MG CAPSULE PO (01:38)
[2021-01-25] MEDS: SODIUM CHLORIDE 0.9% IV 1,000 ML 999 ML IV CONT (01:40)
[2021-01-25] MEDS: ACETAMINOPHEN 325 MG TABLET 650 MG (02:31)
[2021-01-25 02:53] VITALS: BP 120/70; PULSE 94; RESP 14; O2SAT 96
== END 2021-01-25 02:33 | disposition home or self-care (01) ==
PROVIDERS: Emergency Provider Emergency Medicine; PCP Family Medicine
DX: R10.9 Unspecified abdominal pain (principal); M54.9 Dorsalgia, unspecified; J44.9 Chronic obstructive pulmonary disease, unspecified; F17.200 Nicotine dependence, unspecified, uncomplicated; Z79.891 Long term (current) use of opiate analgesic
CPT/HCPCS: 36415; 74176; 80048; 80053; 81001; 83690; 85025; 96361; 96374; 96375; 99284; A9270; J0131; J2270; J2405; J2550; J7030; J7120

== ENCOUNTER 2021-01-26 19:31 | Emergency (ER) | payer OTHER, SELFPAY ==
[2021-01-26 19:39] VITALS: BP 113/72; PULSE 92; RESP 16; TEMP 36.9; O2SAT 100
[2021-01-26 20:04] VITALS: BP 137/78; PULSE 100; RESP 18; TEMP 36.8; O2SAT 99
[2021-01-26 20:11] VITALS: BP 125/80; PULSE 86; RESP 16; O2SAT 100
--- NOTE | 2021-01-26 20:53 | ED.BACK ---
HPI - Back Pain/Injury General Chief Complaint: Back Pain/Injury Stated Complaint: back pain Time Seen by Provider: 01/26/21 20:53 Source: patient Mode of arrival: ambulatory Limitations: no limitations History of Present Illness HPI Narrative: Patient is a 45-year-old male complaining of low back pain, 10 out of 10, nonradiating, started 3 days ago. Patient denies any chest pain, shortness of breath, abdominal pain, nausea, vomiting, urinary symptoms, fever or chills. Patient denies any weakness, numbness or incontinence. Patient has a history of chronic low back pain. Patient was seen here twice this past week for the same complaint and had 2 CT scans done. Patient has had approximately 6 CT scan of his abdomen pelvis for the same complaint this year alone. Related Data Home Medications Medication Instructions Recorded Confirmed budesonide-formoterol [Symbicort] 1 inh INHALATION DIRECTED 05/28/20 05/28/20 hydrocodone-acetaminophen 1 tablet PO DIRECTED 05/28/20 05/28/20 tiotropium bromide [Spiriva with 1 cap INHALATION DAILY 05/28/20 05/28/20 HandiHaler] Allergies Allergy/AdvReac Type Severity Reaction Status Date / Time ketorolac [From Toradol] Allergy Hives Verified 01/26/21 20:08 naproxen Allergy Hives Verified 01/26/21 20:08 Penicillins Allergy Hives Verified 01/26/21 20:08 tramadol Allergy Hives Verified 01/26/21 20:08 Review of Systems Review of Systems: All systems reviewed & are unremarkable except as noted in HPI and below Constitutional: Constitutional: Denies body ache(s), Denies chills, Denies excessive sweating, Denies fatigue, Denies fever(s), Denies headache(s), Denies lethargy, Denies malaise, Denies weakness and Denies weight loss Eyes: Eyes: Denies blurry vision, Denies change in vision and Denies loss of vision ENT: Denies dizziness, Denies ear discharge, Denies headache(s), Denies lip swelling, Denies epistaxis, Denies nasal congestion, Denies neck pain, Denies throat swelling and Denies tongue swelling Cardiovascular: Cardiovascular: Denies chest pain, Denies chest pain at rest, Denies chest pain with activity, Denies diaphoresis, Denies rapid heart rate, Denies edema, Denies irregular heart rhythm, Denies lightheadedness, Denies palpitations, Denies dyspnea and Denies dyspnea on exertion Respiratory: Respiratory: Denies chest congestion, Denies cough, Denies hemoptysis, Denies dyspnea and Denies dyspnea on exertion Gastrointestinal: Gastrointestinal: Denies abdominal pain, Denies melena, Denies hematochezia, Denies diarrhea, Denies nausea, Denies vomiting and Denies hematemesis Musculoskeletal: Musculoskeletal: Denies abnormal gait, Denies deformity, Denies joint swelling, Denies limited range of motion, Denies neck pain and Denies numbness Neurologic: Denies Abnormal speech present, Denies abnormal gait, Denies confusion, Denies dizziness, Denies headache(s), Denies focal weakness, Denies loss of vision, Denies numbness, Denies Other visual disturbances, Denies Sensory deficit (Neuro) and Denies weakness Psychiatric: Psychiatric: Denies confusion, Denies depression, Denies auditory hallucinations, Denies homicidal ideation and Denies suicidal ideation Endocrine: Endocrine: Denies cold intolerance, Denies excessive sweating, Denies fatigue, Denies heat intolerance and Denies palpitations Hematologic/Lymphatic: Hematologic/Lymphatic: Denies easy bleeding and Denies easy bruising Allergic/Immunologic: Allergic/Immunologic: Denies lip swelling, Denies throat swelling and Denies tongue swelling PMFSH Past Medical History Medical History COPD (chronic obstructive pulmonary disease) Urolithiasis Surgical History Surgical History History of orthopedic surgery Social History Social History Smoking status: Current every day sm
[2021-01-26] MEDS: CYCLOBENZAPRINE HCL 10 MG TABLET PO (21:40)
[2021-01-26 22:11] VITALS: BP 125/80; PULSE 86; RESP 16; O2SAT 100
== END 2021-01-26 22:11 | disposition home or self-care (01) ==
PROVIDERS: Emergency Provider Emergency Medicine; PCP Family Medicine
DX: M54.5 Low back pain (principal); G89.29 Other chronic pain; J44.9 Chronic obstructive pulmonary disease, unspecified; Z87.442 Personal history of urinary calculi; F17.200 Nicotine dependence, unspecified, uncomplicated
CPT/HCPCS: 96372; 99283; A9270; J1100

== ENCOUNTER 2021-03-24 22:18 | Emergency (ER) | payer OTHER, SELFPAY ==
[2021-03-24 22:30] VITALS: BP 129/75; PULSE 94; RESP 16; TEMP 37.3; O2SAT 98
--- NOTE | 2021-03-24 22:42 | ED.BACK ---
HPI - Back Pain/Injury General Chief Complaint: Back Pain/Injury Stated Complaint: Lower back pain Time Seen by Provider: 03/24/21 22:41 Source: patient Mode of arrival: ambulatory Limitations: no limitations History of Present Illness HPI Narrative: Patient is a 45-year-old male complaining of left lower back pain radiating to his left lower extremity that started yesterday. Patient states his pain is a 10 out of 10, sharp, worse with movement. Patient has had multiple ER visits for the same complaint, has had about 5 CT scans this year alone. Patient has history of chronic low back pain. Patient denies any weakness, numbness, incontinence, fever, chills or urinary symptoms. Related Data Home Medications Medication Instructions Recorded Confirmed budesonide-formoterol [Symbicort] 1 inh INHALATION DIRECTED 05/28/20 05/28/20 hydrocodone-acetaminophen 1 tablet PO DIRECTED 05/28/20 05/28/20 tiotropium bromide [Spiriva with 1 cap INHALATION DAILY 05/28/20 05/28/20 HandiHaler] Allergies Allergy/AdvReac Type Severity Reaction Status Date / Time ketorolac [From Toradol] Allergy Hives Verified 03/24/21 22:54 naproxen Allergy Hives Verified 03/24/21 22:54 Penicillins Allergy Hives Verified 03/24/21 22:54 tramadol Allergy Hives Verified 03/24/21 22:54 Review of Systems Review of Systems: All systems reviewed & are unremarkable except as noted in HPI and below Constitutional: Constitutional: Denies body ache(s), Denies chills, Denies excessive sweating, Denies fatigue, Denies fever(s), Denies headache(s), Denies lethargy, Denies malaise, Denies weakness and Denies weight loss Eyes: Eyes: Denies blurry vision, Denies change in vision and Denies loss of vision ENT: Denies dizziness, Denies ear discharge, Denies headache(s), Denies lip swelling, Denies epistaxis, Denies nasal congestion, Denies neck pain, Denies throat swelling and Denies tongue swelling Cardiovascular: Cardiovascular: Denies chest pain, Denies chest pain at rest, Denies chest pain with activity, Denies diaphoresis, Denies rapid heart rate, Denies edema, Denies irregular heart rhythm, Denies lightheadedness, Denies palpitations, Denies dyspnea and Denies dyspnea on exertion Respiratory: Respiratory: Denies chest congestion, Denies cough, Denies hemoptysis, Denies dyspnea and Denies dyspnea on exertion Gastrointestinal: Gastrointestinal: Denies abdominal pain, Denies melena, Denies hematochezia, Denies diarrhea, Denies nausea, Denies vomiting and Denies hematemesis Musculoskeletal: Musculoskeletal: Denies abnormal gait, Denies deformity, Denies joint swelling, Denies limited range of motion, Denies neck pain and Denies numbness Neurologic: Denies Abnormal speech present, Denies abnormal gait, Denies confusion, Denies dizziness, Denies headache(s), Denies focal weakness, Denies loss of vision, Denies numbness, Denies Other visual disturbances, Denies Sensory deficit (Neuro) and Denies weakness Psychiatric: Psychiatric: Denies confusion, Denies depression, Denies auditory hallucinations, Denies homicidal ideation and Denies suicidal ideation Endocrine: Endocrine: Denies cold intolerance, Denies excessive sweating, Denies fatigue, Denies heat intolerance and Denies palpitations Hematologic/Lymphatic: Hematologic/Lymphatic: Denies easy bleeding and Denies easy bruising Allergic/Immunologic: Allergic/Immunologic: Denies lip swelling, Denies throat swelling and Denies tongue swelling PMFSH Past Medical History Medical History COPD (chronic obstructive pulmonary disease) Urolithiasis Surgical History Surgical History History of orthopedic surgery Social History Social History Smoking status: Current every day smoker Alcohol intake: current Alcohol use details: occasional Substance use:
[2021-03-24] MEDS: CYCLOBENZAPRINE HCL 10 MG TABLET PO (23:00)
== END 2021-03-24 23:12 | disposition home or self-care (01) ==
LOC: ANHED 22:51
PROVIDERS: Emergency Provider Emergency Medicine; PCP Family Medicine
DX: M54.16 Radiculopathy, lumbar region (principal); J44.9 Chronic obstructive pulmonary disease, unspecified; Z87.442 Personal history of urinary calculi; F17.200 Nicotine dependence, unspecified, uncomplicated
CPT/HCPCS: 96372; 99283; A9270; J1100

== ENCOUNTER 2021-06-13 12:54 | Emergency (ER) | payer BC, SELFPAY ==
--- NOTE | 2021-06-13 13:02 | PC.NURSE ---
Called for triage, no answer.
--- NOTE | 2021-06-13 13:11 | PC.NURSE ---
2ND CALL FOR TRIAGE, DNAP
--- NOTE | 2021-06-13 13:19 | PC.NURSE ---
3RD CALL FOR TRIAGE. PT DNAP. LEFT PRIOR TO TRIAGE.
== END 2021-06-13 13:19 | disposition left against medical advice (07) ==
PROVIDERS: PCP Family Medicine
DX: Z53.21 Procedure and treatment not carried out due to patient leaving prior to being seen by health care provider (principal)
CPT/HCPCS: 99199

== ENCOUNTER 2021-08-30 12:30 | Outpatient (RCR) | payer BC, SELFPAY ==
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
--- NOTE | 2021-08-14 15:58 | PCPTNOTE ---
Patient did not show up for scheduled appointment this date.
--- NOTE | 2021-08-16 14:53 | PCPTNOTE ---
Patient did not show up for scheduled appointment this date; called to leave patient massage on reminder for next appointment voicemail box full unable to leave massage.
--- NOTE | 2021-08-21 12:49 | PCPTNOTE ---
Patient did not show up for scheduled appointment this date; unable to leave voicemail due to mailbox full.
--- NOTE | 2021-08-23 12:28 | PCPTNOTE ---
Patient called & cancelled scheduled appointment this date due to not feeling well stated to be sorry for not calling for other appointments that have been missed.
--- NOTE | 2021-09-04 13:57 | PCPTNOTE ---
Patient did not show up for scheduled re-evaluation this date. Called and left voicemail with instructions to reschedule within the next week or pt will be discharged.
--- NOTE | 2021-09-15 11:43 | PCPTNOTE ---
Attending Provider: Zaki Sharpe, PA Patient:Evens Gardner Date of :1975 He was called on 09/04/21 to call and schedule therapy if he would like to continue. Patient has not returned for any further treatments since 08/30/2021, therefore he will be discharged at this time. Patient?s initial visit was on 08/07/2021 12:30 and he had a total of 3 visits. Thank you for referring this patient to [facility]. Please review, sign, date and return this discharge summary CHARLIE. I have been updated about the patient's current status and I agree with discharge from the above service at this time. Referring Physician Date
== END 2021-09-15 15:11 | disposition home or self-care (01) ==
LOC: ANHPT 12:30
PROVIDERS: PCP Family Medicine; Visit Provider Physician Assistant
DX: M54.16 Radiculopathy, lumbar region (principal); M54.50 Low back pain, unspecified; R29.898 Other symptoms and signs involving the musculoskeletal system
CPT/HCPCS: 97014; 97110; 97161; G0283